=== PATIENT | male | born 1950 | race Caucasian/White ===

== ENCOUNTER 2024-09-02 21:09 | Emergency (ER) | payer MEDICARE, OTHER ==
[~2024-09-02] VITALS: Ht 188 cm; Wt 90.4 kg
[~2024-09-02 21:09] MED LIST: ASPIR-LOW81 MG PO; CALCIO DEL MAR500 MG PO; CALCIUM600 MG PO; CENTRUM SILVER1 EAC1 PO; COREG12.5 MG PO; COREG25 MG PO; COZAAR100 MG PO; COZAAR25 MG PO; DELATESTRY200 MG/1 M IM; GLIPIZIDE XL10 MG PO; HUMALOG100 UNIT/1 SUB-Q; KRILL OIL500 MG PO; LANTUS100 UNITS/ SUB-Q; LOSARTAN POTAS100 MG PO; METFORMIN HCL1000 MG PO; NORCO 5-325 TA1 EACH PO; NOVOLOG100 UNITS/ SUB-Q; PANCRELIPASE D1 EACH PO; PRAVACHOL80 MG PO; PRILOSEC20 MG PO; PROTONIX40 MG PO; QVAR7.3 G1 IH; SPIRONOLACTONE25 MG PO; VENTOLIN HFA18 GM IH; VITAMIN B COMP1 EACH PO; VITAMIN C1000 MG PO; VITAMIN D1000 UNI1 PO; ZENPEP DR 5,001 EACH PO; ZOFRAN ODT8 MG SL
[2024-09-03] MEDS ORDERED: CELECOXIB200 MG PO (01:30)
[2024-09-03] MEDS ORDERED: BUPIVACAINE 0.25% W/ EPI 30 ML SDV DENTAL PRN (01:45)
[2024-09-03] MEDS ORDERED: clindamycin HCL 300 MG HOME.PACK PO ONE (01:45)
[2024-09-03] MEDS ORDERED: CLEOCIN HCL300 MG PO (01:52)
[2024-09-03 02:00] VITALS: BP 127/68
== END 2024-09-03 02:00 | disposition home or self-care (01) ==
LOC: ED 21:09
DX: K04.7 Periapical abscess without sinus (principal); K02.9 Dental caries, unspecified; J45.909 Unspecified asthma, uncomplicated; E11.9 Type 2 diabetes mellitus without complications; I42.9 Cardiomyopathy, unspecified; I25.2 Old myocardial infarction; Z87.891 Personal history of nicotine dependence; Z88.0 Allergy status to penicillin; Z79.82 Long term (current) use of aspirin; Z79.4 Long term (current) use of insulin; Z79.899 Other long term (current) drug therapy
CPT/HCPCS: 64400; 99282-25